=== PATIENT | male | born 1990 | race Caucasian/White ===

== ENCOUNTER 2017-09-22 07:30 | Day surgery (SDC) | payer OTHER ==
[~2017-09-22 07:30] MED LIST: Buffered Lidocaine 0.9% SYRIN* 5 ML/SYR SYRINGE INTRADERM ONE; Dexamethasone IV* 4 MG/ML 1 ML (4 MG) IV SLOW PU ONE; Dexamethasone IV* 4 MG/ML 1 ML (4 MG) ONE; Famotidine IV* 10 MG/ML 2 ML (20 mg) IV ONE; Famotidine IV* 10 MG/ML 2 ML (20 mg) ONE; ceFAZolin 2 GM (*##) 2 GM/100 ML BAG USE CEFA2SOL IVPB ONE
[2017-09-22] MEDS ORDERED: Bupivacaine 0.25% SDV* 30 ML ONE (08:08)
[2017-09-22] MEDS ORDERED: Lidocaine 1% MPF wEPI 200,000* 30 ML SDV ONE (08:09)
[2017-09-22] MEDS ORDERED: Atracurium* 10 MG/ML 10 ML VIAL ONE (08:25)
[2017-09-22] MEDS ORDERED: Propofol* 10 MG/ML 20 ML BTL IV PUSH ONE (08:26)
[2017-09-22] MEDS ORDERED: Ketorolac INJ* 30 MG/ML 1 ML VIAL ONE (08:26)
[2017-09-22] MEDS ORDERED: Ondansetron INJ* 2 MG/ML VIAL ONE (08:26)
[2017-09-22] MEDS ORDERED: Midazolam* 1 MG/ML 5 ML VIAL (5 MG) ONE (08:26)
[2017-09-22] MEDS ORDERED: Lidocaine 2% PF * 5 ML VIAL ONE (08:26)
[2017-09-22] MEDS ORDERED: fentaNYL* 50 MCG/ML 5 ML VIAL (250 MCG VIAL) ONE (08:26)
[2017-09-22] MEDS ORDERED: Glycopyrrolate IV* 0.2 MG/ML 1 ML VIAL ONE (08:28)
[2017-09-22] MEDS ORDERED: fentaNYL* 50 MCG/ML 2 ML VIAL (100 MCG VIAL) ONE (08:48)
[2017-09-22] MEDS ORDERED: oxyCODONE/Acetamin 5/325 MG* TAB PO PRN (09:13)
[2017-09-22] MEDS ORDERED: Ondansetron INJ* 2 MG/ML VIAL IV PRN (09:13)
[2017-09-22] MEDS ORDERED: fentaNYL* 50 MCG/ML 2 ML VIAL (100 MCG VIAL) IV PRN (09:13)
[2017-09-22] MEDS ORDERED: DiMENhydriNATE IV* 50 MG/ML VIAL IV PUSH PRN (09:13)
[2017-09-22] MEDS ORDERED: HYDROmorphone INJ* 1 MG/ML CARPUJECT SYRINGE IV PRN (09:13)
[2017-09-22] MEDS ORDERED: Naloxone* 0.4 MG/ML 1 ML VIAL IV PRN (09:13)
[2017-09-22] MEDS ORDERED: Scopolamine 1.5 mg* PATCH TRANSDERM PRN (09:13)
[2017-09-22] MEDS ORDERED: oxyCODONE/Acetamin 5/325 MG* TAB ONE (10:54)
[2017-09-22 11:26] VITALS: BP 139/88
--- NOTE | 2017-09-25 13:49 | OP ---
CC: PCP OPERATIVE REPORT: DATE OF OPERATION: 09/22/17 DATE OF : 89 SURGEON: Halie Dinero MD DISPOSAL PLANT OPERATOR: SHIREEN Dinh. An assistant professor of communication was needed for the entirety of the case to help with positioning, retraction and was utilized throughout all portions of the case. ANESTHESIOLOGIST: Dr. Herrera. ANESTHESIA: General. PRE-OP DIAGNOSIS: Left knee grade 3 anterior cruciate ligament rupture. POST-OP DIAGNOSIS: Left knee grade 3 anterior cruciate ligament rupture with lot of meniscus fraying. OPERATIVE PROCEDURE: 1. Left knee anterior cruciate ligament reconstruction using BTB autograft. 2. Partial lateral meniscectomy. COMPLICATIONS: None. ESTIMATED BLOOD LOSS: Minimal. TOURNIQUET TIME: Twenty minutes at 250 mmHg. IMPLANTS: [employer] 7 x 25 and 9 x 25. INDICATIONS: Jose Lopez is a 27-year-old male who presented with a left knee ACL injury after skiing, this occurred on 08/27/17. He has a previous history of a right knee ACL reconstruction that was done in October 2014. He has failed conservative management. He is 27 years old and has elected to proceed with surgical treatment. Risks and benefits of surgery were discussed at length and include but are not limited to bleeding, infection, damage to nerves, vessels, surrounding structures, wound nonhealing, persistent pain, need for further surgery, scarring, stiffness, incomplete relief of symptoms, the risks of anesthesia, risk of DVT. DESCRIPTION OF PROCEDURE: The patient was greeted in the preoperative area by the attending surgeon. Correct extremity was marked and the consent was confirmed. The patient was brought back to the operating suite, where he was placed in supine position on operating table. He then underwent general anesthesia with LMA intubation, after which he was appropriately positioned on the bed. The lateral post was positioned and unsterile tourniquet was placed high in the proximal thigh. A keller bag was placed to the end of the bed to keep the knee at 90 degrees. The left leg was then prepped and draped in usual sterile fashion with chlorhexidine soap, scrub and alcohol wipe and a final prep with ChloraPrep. After appropriate surgical pause indicating site, side, procedure and administration of antibiotics, the Esmarch was used to exsanguinate the limb and the tourniquet was inflated to 250 mmHg. The knee was intra-articularly injected with 1% lidocaine with epinephrine. A midline incision centered over the patellar tendon was then made over the 15 blade. Soft tissues were carefully dissected to expose the paratenon, which was then sharply incised. Layers were taken for later closure. The patellar tendon was identified and exposed to a width of about 36 mm, the center 10 mm were then harvested using 10 blade. The patellar bone block and tibial bone block were then outlined using electrocautery device to allow for the patella side to be 9 x 24 mm and the tibial 10 x 30 mm. The sagittal saw then used to cut the bone block out. The osteotome was used to loosen this. Once the graft was fully harvested, it was prepared on the back table by the physician assistant professor of communication. During this time, the attending surgeon closed the patellar tendon with 0 Vicryl in interrupted fashion. The tourniquet was then deflated for a total time of 20 minutes. The arthroscopy portion began with the lateral portal through the capsule. The scope was brought into the joint. The joint was examined. There were grade 0 to 1 changes in the patellofemoral joint. The medial and lateral gutters were intact. The scope was brought into the notch and there was synovitis present. The anterior medial portal was made using 18-gauge for localization. Shaver was used to debride the fat pad. The ACL had a grade 3 rupture with the ACL stump displaced. The shaver and biters were used to debride this back. The scope was brought into the medial compartment, which had grade 0 to 1 changes in the medial femoral condyle and medial plateau. The medial meniscus was intact. The lateral meniscus had grade 0 to 1 changes. The scope was brought into the lateral compartment with the knee in the [id number] position. The lateral femoral condyle had grade 0 to 1 changes. The lateral plateau had grade 1 changes with softening of the cartilage. The lateral meniscus had fraying of the root of the meniscus, as well as the body. The shaver was used to debride this back. Once the partial meniscectomy was completed, attention was directed to the ACL portion. After the lateral wall, the femoral condyle was repaired using electrocautery and shaver. A starting awl was used to mack the provisional portion where the tunnel would be. Attention was directed to the tibial tunnel and tip-to-tip guide centered about 50 degrees was then placed in the center of the footprint based on the landmarks of the medial and lateral meniscus as well as the PCL. Once the guidewire was placed in the center of the footprint, it was overdrilled with a size 10 mm full-bore reamer based on the graft sizes. The excess bone was removed and saved for bone graft. The tunnel was then carefully rasped to allow for easier graft passage. A curette was then placed to prevent any fluid egress through the remainder of the case. Once this was complete, the straight guidewire was placed in the center of the femoral footprint. The knee was hyperflexed and the Beath pin was then placed in the center of the femoral footprint. This was checked by changing the camera from the lateral left portal and moving it to the medial portal to make sure that there was appropriate position and there was adequate back wall. Once this confirmed, a size 9 mm low profile reamer was then used to drill a tunnel of about 25 mm depth. All excess bone was removed. The tunnel was visualized and images were taken. The tunnel was then notched and a #2 Ethibond suture was placed in the eyelet end of the Beath pin and passed through the lateral condyle , IT band, and the skin and then in antegrade fashion through the tibial tunnel. The graft was then brought to the operating table and was passed in an arthroscopic and direct visualization to make sure it sat appropriately in the femoral tunnel. With tension on both the femoral and the tibial sutures, a size 7 x 25 mm screw was used to secure the bone block in place, it was placed with excellent purchase. The knee was then taken through range of motion, full extension, found to not impinge anteriorly. The knee was then cycled approximately 15 times with no change in the position of the graft. The scope was removed again and the attention was directed to the tibial tunnel. With the knee placed in 20 degrees of flexion with tension on tibial sutures and posterior drawer, the tibial portion was secured with a size 9 x 25 mm SoftSilk screw. The knee was then taken through full range of motion, a Lm's test was found to be stable. The scope was brought back to the joint and graft was visualized, found to be appropriately positioned. The wounds were copiously irrigated with sterile saline. The excess bone graft was placed in the patellar defect and the tibial defect. The patellar defect was oversewn with 0 Vicryl. The paratenon was closed with 2-0 Vicryl in a running fashion. The wounds were irrigated again. The skin was closed in layers with 2-0 Vicryl and 3-0 Monocryl. Sterile dressings were applied. The incision as well as the knee were intra-articularly injected with 0.25% Marcaine plain. Sterile dressings were applied. A Cryocuff, as well as a hinged knee brace were applied. The patient was awoken from anesthesia and transferred to PACU in stable condition. POSTOPERATIVE PLAN: He will be weightbearing as tolerated. He will start range of motion with physical therapy. He was instructed to do quad sets, calf pumps and straight leg raises. He will be discharged on pain medication and antibiotics. DVT prophylaxis was considered, but deferred due to no previous personal or family history. I will see the patient back in about 7 days. [id number]/[facility] #: [id number]
== END 2017-09-22 11:27 | disposition home or self-care (01) ==
LOC: OREAST 07:30
PROVIDERS: ATTEND Orthopaedic Surgery
DX: S83.512A Sprain of anterior cruciate ligament of left knee, initial encounter (principal); S83.282A Other tear of lateral meniscus, current injury, left knee, initial encounter; Y93.23 Activity, snow (alpine) (downhill) skiing, snowboarding, sledding, tobogganing and snow tubing; V00.328A Other snow-ski accident, initial encounter; Y92.838 Other recreation area as the place of occurrence of the external cause
CPT/HCPCS: A9270-GY; C1713; J1100; J1885; J2001; J2250; J2405; J2704; J3010